=== PATIENT | male | born 1970 | race Caucasian/White ===

== ENCOUNTER → 2023-04-13 | Outpatient (CLI) | payer OTHER, SELFPAY | END | disposition home or self-care (01) | PROVIDERS: Referring Provider Otolaryngology Otolaryngology/Facial Plastic Surgery; Visit Provider Otolaryngology Otolaryngology/Facial Plastic Surgery | DX: J03.90 Acute tonsillitis, unspecified (principal) | CPT/HCPCS: 87070 ==

== ENCOUNTER → 2023-05-11 | Outpatient (CLI) | payer OTHER, SELFPAY ==
--- NOTE | 2023-05-11 06:54 | CT_ITS ---
STUDY: CT SOFT TISSUE NECK WITH CONTRAST REASON FOR EXAM: Male, 52 years old. Malignant neoplasm of tonsil, unspecified RADIATION DOSAGE (If Supplied By Facility): CTDIvol = ( 17.55 ) mGy, DLP = ( 523.42 ) mGycm TECHNIQUE: The patient was scanned in a multi-detector CT scanner. High resolution transaxial imaging was performed following intravenous administration of IV 100mL Isovue-370. Sagittal and coronal images were reconstructed. Individualized dose optimization techniques were used for this CT. COMPARISON: None. FINDINGS: Normal bilateral parotid glands. Normal bilateral supervisor soakers spaces. Normal bilateral parapharyngeal spaces. Normal bilateral carotid spaces. Normal bilateral sublingual and submandibular glands and spaces. Normal visualized nasopharynx. Normal retropharyngeal space. Normal perivertebral space. There is asymmetric enlargement of the bilateral palatine tonsils, left more so compared to the right, cannot exclude a nodule or lesion. There is borderline-mild enlargement of the soft palate. The visualized tongue, tongue base and oropharynx are normal. Mild scattered lymph nodes with slight enlargement involving the carotid sheath and anterior cervical chain, nonspecific. Normal epiglottis, bilateral vallecula and hypopharynx. The pre-epiglottic and paraglottic adipose spaces are normal. Normal visualized bilateral piriform sinuses, aryepiglottic folds, vocal cords, and arytenoid-cricoid articulations. Normal subglottic trachea. Normal bilateral lobes of the thyroid gland. Normal visualized pulmonary apices. Areas of focal mucosal thickening versus mucous retention cyst versus polyp involving the bilateral maxillary sinuses. Remainder of the paranasal sinuses and mastoids are clear. There is multilevel degenerative changes of the cervical spine. Minimal atherosclerotic disease involving the bilateral carotid bulb region otherwise normal bilateral carotid and vertebral arteries. CT/Soft Tissue Neck WITH Contrast IMPRESSION: Mild fullness involving the tip of the soft palate, fibula is mild asymmetric enlargement of bilateral pontine tonsils, left more than right, cannot exclude a subtle mass at this level. Clinical correlation recommended. Mild lymph node prominence bilaterally along the upper cervical chain and carotid sheath of indeterminate clinical significance. No other masses or lymphadenopathy seen. Electronically Signed: Nedra Ledbetter MD at 18:26 EDT ,
== END | disposition home or self-care (01) ==
LOC: CT 06:52
PROVIDERS: Referring Provider Otolaryngology Otolaryngology/Facial Plastic Surgery; Visit Provider Otolaryngology Otolaryngology/Facial Plastic Surgery
DX: C09.9 Malignant neoplasm of tonsil, unspecified (principal)
CPT/HCPCS: 70491; Q9967

== ENCOUNTER → 2023-05-23 | Outpatient (CLI) | payer OTHER, SELFPAY ==
[2023-05-23 09:14] LABS: Hematocrit 46.1 % (40-54); Hemoglobin 15.1 g/dL (13.0-16.5); Mean Corp Hgb Conc 32.8 g/dL (32-36); Mean Corpuscular Hgb 33.6 pg (27.0-32.0); Mean Corpuscular Volume 102.4 fL (80-94); Mean Platelet Vol. 10.9 fl (6.2-12.0); Platelet Count 211 K/mm3 (150-450); RBC Distribution Width CV 12.3 % (11.6-14.6); RBC Distribution Width SD 46.5 fl (35.1-43.9)
[2023-05-23 09:42] LABS: Anion Gap 9 (5-15); BUN 11 mg/dL (7-18); BUN/Creat Ratio 14.8 RATIO (10-20); Calcium,Total 9.6 mg/dL (8.5-10.1); Chloride 103 mmol/L (98-107); Creatinine, Serum 0.74 mg/dL (0.70-1.30); EST Glomerular Filtration Rate 117 mL/min (>60); Est Glom Filt Rate - Afr Amer 141 mL/min (>60); Glucose 87 mg/dL (74-106); Potassium 3.8 mmol/L (3.5-5.1); Sodium Level 138 mmol/L (136-145)
== END | disposition home or self-care (01) ==
PROVIDERS: Referring Provider Otolaryngology; Visit Provider Otolaryngology
DX: Z01.818 Encounter for other preprocedural examination (principal)
CPT/HCPCS: 36415; 80048; 85027; 93005

== ENCOUNTER → 2023-06-17 | Outpatient (CLI) | payer OTHER, SELFPAY ==
[2023-06-17 08:26] LABS: Hematocrit 43.3 % (40-54); Mean Corp Hgb Conc 32.3 g/dL (32-36); Mean Corpuscular Hgb 33.3 pg (27.0-32.0); Mean Corpuscular Volume 103.1 fL (80-94); Mean Platelet Vol. 11.7 fl (6.2-12.0); Platelet Count 328 K/mm3 (150-450); RBC Distribution Width CV 11.9 % (11.6-14.6); RBC Distribution Width SD 45.1 fl (35.1-43.9); White Blood Count 7.3 K/mm3 (4.4-11.0)
[2023-06-17 09:19] LABS: Anion Gap 5 (5-15); BUN 10 mg/dL (7-18); BUN/Creat Ratio 9.6 RATIO (10-20); Calcium,Total 9.2 mg/dL (8.5-10.1); Chloride 111 mmol/L (98-107); Creatinine, Serum 1.04 mg/dL (0.70-1.30); EST Glomerular Filtration Rate 79 mL/min (>60); Est Glom Filt Rate - Afr Amer 96 mL/min (>60); Glucose 109 mg/dL (74-106); Sodium Level 143 mmol/L (136-145)
== END | disposition home or self-care (01) ==
LOC: LAB 07:36
PROVIDERS: Referring Provider Otolaryngology; Visit Provider Otolaryngology
DX: Z01.818 Encounter for other preprocedural examination (principal)
CPT/HCPCS: 36415; 80048; 85027

== ENCOUNTER → 2023-06-28 | Outpatient (CLI) | payer OTHER, SELFPAY ==
--- NOTE | 2023-06-28 | TONS_PTH ---
PATIENT: JUAN MANUEL FERNÁNDEZ [id number] AGE/SX: 52/M ROOM: RE06/28/[address]: Dr. Williams Borges MD : 1970 BED: DIS: 06/28/2023 SPEC #: [id number] RECD: 06/28/23 15:05 STATUS: SIMBA MCGUIRE #: [id number] AIDEN: 06/28/23 00:[address]: Williams Borges DEPT: SURGICAL PATHOLOGY RECD BY: Sho De Anda ENTERED: 06/29/23 07:38 SP TYPE: TONSILS OTHR DR: No Primary Care Phys [facility] Tissues: A - Tonsil, NOS B - Tonsil, NOS Procedures: Surgery Specimen Level IV HEADER OPERATION: Tonsillectomy, panendoscopy PRE-OP DIAGNOSIS: Chronic disease of tonsils TISSUE SUBMITTED: A - Right tonsil, B - Left tonsil MICROSCOPIC DIAGNOSIS A. Right tonsil, tonsillectomy: Benign lymphoid tissue. Organisms consistent with actinomyces. B. 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 See comment. AM:gerard 06/30/2023 COMMENT B. The invasive carcinoma measures 15.5 x 1.2 x 9.0 mm and is present at less than 1.0 mm from the tonsillar bed (deep) margin of resection. The carcinoma focally invades superficial skeletal muscle fibers. There is no evidence of angiolymphatic or perineural invasion. Immunohistochemistry ([id number]) supports the above diagnosis. MICROSCOPIC DESCRIPTION Slides are reviewed. GROSS DESCRIPTION A - Received in formalin labeled with the patient's name and designated right tonsil. The specimen consists of a tonsil that weighs 2.0 gm and measures 2.6 x 1.6 x 1. cm. The external surface is pink-king, smooth, glistening and somewhat lobulated. Focally it is hemorrhagic, granular and bears cautery artifact. Serial cross sections through the tonsil reveal normal tonsillar architecture. The specimen is serially sectioned and totally submitted in one cassette. B - Received in formalin labeled with the patient's name and designated left tonsil. The specimen consists of a tonsil that weighs 4.5 gm and measures 3.5 x 2.5 x 1.5 cm. The external surface is pink-king, smooth, glistening and somewhat lobulated. Focally it is hemorrhagic, granular and bears cautery artifact. Serial cross sections through the tonsil reveal normal tonsillar architecture. The specimen is inked, serially sectioned and totally submitted in three cassettes. / AM:gerard 06/29/2023 TC:0 CPT: 78192 x2
--- NOTE | 2023-06-28 | IMM_PTH ---
PATIENT: JUAN MANUEL FERNÁNDEZ LOC: [facility] U#:[id number] AGE/SX: 52/M ROOM: RE06/28/[address]: Dr. Williams Borges MD : 1970 BED: DIS: 06/28/2023 SPEC #: [id number] RECD: 06/30/23 08:02 STATUS: SIMBA REQ #: [id number] AIDEN: 06/28/23 00:[address]: Williams Borges DEPT: IMMUNOHISTOCHEMISTRY RECD BY: Polina Bragg ENTERED: 06/30/23 08:05 SP TYPE: IMMUNO OTHR DR: Lucero Primary Care Phys Tissues: B - Tonsil, NOS Procedures: p16 (initial) CD31 (add) CK5-6 (add) DESMIN (add) KI-67 (add) FACTOR VIII (add) Pankeratin (add) P40 (add) PHYSICIAN & INSTITUTION [place] [id number] SPECIMEN INFORMATION: Tissue Source: B - Left tonsil Clinical Info: Chronic disease of tonsils Specimen Number: [id number] B2-4 CPT code: 57445, 34123 x14 METHODOLOGY: Deparaffinized sections of prefer/formalin-fixed tissue or PAP/DQ stained slides are incubated with monoclonal/polyclonal antibodies/oligonucleotide probes. Localization is made via biotin free immunoperoxidase method. Appropriate controls are performed and reacted as expected. Results on target cell population are indicated in the following table: RESULTS: ANTIBODY / CLONE RESULT Block B2 P40 (BC28) positive P16 (E6H4) positive block like CK5-6 (D5 & 1684) positive AE1-3 (AE1/AE3/PCK26) positive Ki-67 (30-9) positive Block B3 P40 (BC28) positive CK5-6 (D5 & 1684) positive Desmin (CE-R-11) positive CD31 (MIRIAM/70A) negative Factor VIII (R Ag) negative Block B4 P40 (BC28) positive CK5-6 (D5 & 1684) positive Desmin (CE-R-11) positive CD31 (MIRIAM/70A) negative Factor VIII (R Ag) negative These tests were developed and their performance characteristics determined by [facility]. They may not have been cleared or approved by the U.S. Food and Drug Administration. The FDA has determined that such clearance or approval is not necessary. The above immunohistochemical/dualISH markers are ordered and reviewed by the Pathologist. INTERPRETATION: B. Left tonsil, tonsillectomy: Invasive squamous cell carcinoma
--- NOTE | 2023-06-28 | TONS_PTH ---
PATIENT: JUAN MANUEL FERNÁNDEZ [id number] AGE/SX: 52/M ROOM: RE06/28/[address]: Dr. Williams Borges MD : 1970 BED: DIS: 06/28/2023 SPEC #: [id number] RECD: 06/28/23 15:05 STATUS: SIMBA MCGUIRE #: [id number] AIDEN: 06/28/23 00:[address]: Williams Borges DEPT: SURGICAL PATHOLOGY RECD BY: Sho De Anda ENTERED: 06/29/23 07:38 SP TYPE: TONSILS OTHR DR: No Primary Care Phys [facility] Tissues: A - Tonsil, NOS B - Tonsil, NOS Procedures: Surgery Specimen Level IV HEADER OPERATION: Tonsillectomy, panendoscopy PRE-OP DIAGNOSIS: Chronic disease of tonsils TISSUE SUBMITTED: A - Right tonsil, B - Left tonsil MICROSCOPIC DIAGNOSIS A. Right tonsil, tonsillectomy: Benign lymphoid tissue. Organisms consistent with actinomyces. B. 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 See comment. AM:gerard 06/30/2023 AM:gerard 07/27/2023 COMMENT B. The invasive carcinoma measures 15.5 x 1.2 x 9.0 mm and is present at less than 1.0 mm from the tonsillar bed (deep) margin of resection. The carcinoma focally invades superficial skeletal muscle fibers. There is no evidence of angiolymphatic or perineural invasion. Immunohistochemistry ([id number]) supports the above diagnosis and reveals an invasive squamous cell carcinoma. Case was discussed with Dr. Escobar on 07/27/2023. MICROSCOPIC DESCRIPTION Slides are reviewed. GROSS DESCRIPTION A - Received in formalin labeled with the patient's name and designated right tonsil. The specimen consists of a tonsil that weighs 2.0 gm and measures 2.6 x 1.6 x 1. cm. The external surface is pink-king, smooth, glistening and somewhat lobulated. Focally it is hemorrhagic, granular and bears cautery artifact. Serial cross sections through the tonsil reveal normal tonsillar architecture. The specimen is serially sectioned and totally submitted in one cassette. B - Received in formalin labeled with the patient's name and designated left tonsil. The specimen consists of a tonsil that weighs 4.5 gm and measures 3.5 x 2.5 x 1.5 cm. The external surface is pink-king, smooth, glistening and somewhat lobulated. Focally it is hemorrhagic, granular and bears cautery artifact. Serial cross sections through the tonsil reveal normal tonsillar architecture. The specimen is inked, serially sectioned and totally submitted in three cassettes. / AM:gerard 06/29/2023 TC:0 CPT: 49008 x2
== END | disposition home or self-care (01) ==
LOC: LABSPEC 15:13
PROVIDERS: Visit Provider Otolaryngology
DX: C09.9 Malignant neoplasm of tonsil, unspecified (principal)
CPT/HCPCS: 88304; 88305; 88341; 88342

== ENCOUNTER 2023-07-04 15:21 | Day surgery (SDC) | payer OTHER, SELFPAY ==
[2023-07-04] VITALS (7 sets, daily range): BP systolic 137–153; BP diastolic 76–105; PULSE 62–88; RESP 14–16; TEMP 36.1–37.1; O2SAT 92–98; BMI 23.5
--- NOTE | 2023-07-04 15:27 | EX.ED.DYSGE1 ---
HPI History of Present Illness Chief Complaint: Sore Throat Detail of Chief Complaint: Post tonsillar bleed Informant: patient, spouse/S.O. and other (Dr. Leo Borges called prior to patient's arrival. He requested IV.) Onset/Context/Timing Onset: Today Context: Sudden Onset Timing: Continuous and Waxes and wanes Quality: Post tonsillar bleed Location: Left Current Severity: Mild Maximum Severity: Moderate Worsened by: Nothing Relieved by: Nothing Associated Symptoms Associated Symptoms: None Narrative Narrative: Patient is a 52-year-old male status post tonsillectomy last week. He contacted Dr. Borges. He called prior to patient's arrival. Patient has not had any to eat today. He had water prior to arrival to clear his throat. He is not taking any NSAIDs or antiplatelet medicine. He has no other complaints. Prior similar symptoms: No Recent Illness/Hospitalization: Yes [facility] Medical History (Updated 07/04/23 @ 15:41 by Jo Mai) Tonsillar bleed Medical History no medical history no medical history Social History Smoking Status: Unknown if ever smoked [facility] ED Constitutional Constitutional ED: Denies chills or fever(s) Eyes Eyes: Denies blurry vision, change in vision or diplopia ENT ENT ED: Reports sore throat; Denies ear pain or rhinorrhea Cardiovascular Cardiovascular: Denies chest pain or palpitations Respiratory/Chest Respiratory/Chest: Denies cough, dyspnea or dyspnea on exertion Gastrointestinal Gastrointestinal: Denies nausea or vomiting Hematologic/Lymphatic Hematologic/Lymphatic: Reports systems reviewed and no addt'l complaints, except as documented EXAM Physical Exam Const Vital Signs: 07/04/23 15:22 Temperature 96.9 F L Temperature Source Temporal Pulse Rate 87 Respiratory Rate 16 Blood Pressure 153/89 H Blood Pressure Mean 110 Pulse Ox 97 Oxygen Delivery Method Room Air Positive well nourished and well developed General Appearance ED: well developed and NAD; Negative for cyanotic, diaphoretic or pallor HEENT Reports moist mucous membranes HEENT Narrative: Blood noted posterior pharynx. There is a moderate-sized clot noted in the left tonsillar fossa. Uvula is midline. There is no dysphonia. Eyes PERRL and EOMs intact bilaterally General Eye ED: Negative for pale conjunctiva or scleral icterus Neck no lymphadenopathy, supple and no JVD Neck Narrative: Trachea is midline. Resp normal respiratory effort and clear to auscultation bilaterally Cardio regular rate, regular rhythm, S1 normal heart sound, S2 normal heart sound and no murmurs Extremity normal to inspection Neuro oriented x3 and CN's II-XII intact bilaterally Sensorium / Orientation: alert Psych mental status grossly normal Skin no rashes or lesions noted, no wounds and skin turgor normal General Skin Exam: Negative for jaundice or pallor MDM MDM MDM Narrative Medical decision making narrative: Patient has a post tonsillectomy bleed. He has mild active bleeding at this time. Patient made NPO. IV was established. ENT was made aware that patient has arrived. Plan is OR. Blood work was not obtained since he just started to bleed and would not add anything to patient's care. History & Record Review Additional record(s) reviewed:: Prior outpatient record (Tonsillectomy performed last week, Tuesday) Treatment and Re-Evaluation :: Dr. Dominguez did see patient in the emergency room. He was taken to the OR. Discharge Plan Dx/Rx/DC Orders Clinical Impression: Post-tonsillectomy hemorrhage Disposition Disposition: Acute Care Hospital [facility] Discharge Date/Time: 07/04/23 15:42
--- NOTE | 2023-07-04 15:39 | ED.RN ---
pt to OR via wheelchair. Dr. Mullen and Dr. Orta saw in ED. consent signed. IV in.
--- NOTE | 2023-07-04 16:44 | DCINST_ITS ---
Discharge Instructions Diet Discharge Diet: Soft diet Activity Discharge Activity: Return to Normal Activity Dressing / Incision Call your doctor if your incision/area has: Sudden Increased Bleeding Follow Up Care Please Follow Up With: Williams Borges MD When: 1 week Test Results: Test results from this visit will be discussed in further detail at your follow- up appointment, if applicable. Discharge Plan Admission Attending Provider: Williams Borges Primary Care Provider: Care Physician,Lucero Primary Discharge Orders/Prescriptions Referrals / Follow Up: Care Physician,No Primary [Primary Care Provider] - Disposition Disposition (needs filled in before D/C Order can be placed): Home, Self Care
--- NOTE | 2023-07-04 16:45 | PCM.OPRPT ---
Problems Associated Problem List Diagnoses (1) Post-tonsillectomy hemorrhage: Report of Operation Date of Procedure: 07/04/23 Pre-Operative Diagnosis: post tonsillectomy hemorrhage Post-Operative Diagnosis: post tonsillectomy hemorrhage Surgery/Procedure Performed:: control post tonsillectomy hemorrhage Surgeon: Williams Borges Type of Anesthesia: General Description of Procedure: on the day of the procedure, after appropriate informed consent was obtained, the patient was brought to the operating room and placed in supine position in the operating table. he was placed under general endotracheal anesthesia by the anesthesiologist. the tube was secured, the eyes were taped. the table was rotated 90 degrees toward the surgeon. a lynne naomie mouthgag was inserted into the oral cavity and suspended from the nicholas. a large clot was removed from the left tonsillar fossa. a mid-fossa anterior arterial bleed was cauterized. the remainder of the fossa was cauterized. the right fossa was probed and cauterized. numerous valsalva maneuvers were held and hemostasis was observed. he was extubated and transferred to the PACU in stable condition.
[2023-07-04] MEDS: Oxycodone/Apap 5/325 Tablet PO (18:22)
== END 2023-07-04 18:38 | disposition home or self-care (01) ==
LOC: ED 15:32 → SDC 15:41 → AC 15:42
PROVIDERS: Emergency Provider Emergency Medicine; Visit Provider Otolaryngology
PROC: (CPT 42960; principal; 2023-07-04 16:00)
DX: J95.830 Postprocedural hemorrhage of a respiratory system organ or structure following a respiratory system procedure (principal)
CPT/HCPCS: 42960; 00170; 99284; J7120; A4216; J2405

== ENCOUNTER → 2023-08-16 | Outpatient (CLI) | payer OTHER, SELFPAY ==
--- NOTE | 2023-08-16 09:00 | PET_ITS ---
EXAMINATION: FDG PET/CT ? INDICATIONS: 52-year-old male with a history of head/neck carcinoma, presenting for restaging examination. ? COMPARISON EXAMINATION: None available ? INDEX LESION SIZE SUV INTERPRETATION Left sacral ala ? 2.8 max Quantitative criteria for viable neoplasm are fulfilled, histopathologic investigation recommended, correlation with Magnetic Resonance Imaging recommended, as defined below. ? TECHNIQUE: Following the intravenous administration of 13.06 mCi of F-18 deoxyglucose via the left antecubital fossa, multiplanar image acquisitions of the head, neck, chest, abdomen and pelvis to the level of the midthigh, obtained at one-hour post radiopharmaceutical administration contemporaneously interpreted with the current CT of the chest, abdomen and pelvis dated 08/16/2023 via coregistration reveal: SERUM GLUCOSE LEVEL:? 109 mg/dL? HEIGHT:?? 65 inches WEIGHT:?? 155 pounds ? FINDINGS: ? HEAD/NECK:? There is no evidence of abnormal increased glucose metabolism in the pharyngeal mucosal space, parapharyngeal space, oropharynx, bilateral-lateral and anterior neck, hypopharynx and distribution of the larynx. Asymmetric increased radiopharmaceutical concentration is manifest in the posterior cervical soft tissue compartment of the right neck most consistent with a component of muscle tension artifact. ? The visualized portion of the cerebral cortical-subcortical structures demonstrate symmetric and preserved glucose metabolism. ? CHEST:? There is no quantitative scintigraphic evidence of abnormal increased glucose metabolism within the context of the bilateral hemithorax pulmonary parenchyma, right and left hemithorax at the pleural interface, mediastinal structures, and left-right thoracic perihilum. ? CT of the chest demonstrates the following anatomic characteristics: Coronary artery calcification is observed.? Bilateral axillary soft tissue densities reveal no evidence of increased tracer uptake. Mediastinal soft tissue is ametabolic. There are no parenchymal densities-nodules defined in the right and left hemithorax with quantitatively significant increased FDG uptake. ? ABDOMEN/PELVIS:? Normal physiologic distribution of the radiopharmaceutical is identified in the hepatic (2.9) and splenic parenchyma, both renal units, urinary bladder, and visualized intestinal tract. Diffuse intestinal tract is identified in all four quadrants of the abdominal-pelvic mesentery. ? CT of the abdomen and pelvis is remarkable for the following: Pelvic arterial calcification is observed. Calcified phlebolith formation is noted in the bilateral lower hemipelvis. Right and left inguinal soft tissue densities are ametabolic. Calcification is visualized within the prostate gland. ? SKELETAL:? Asymmetric increased radiopharmaceutical concentration is defined within the left sacral ala generating a calculated standard uptake value of 2.8. ? PET/PET/CT Tumor Base -Thigh Init IMPRESSION: ? The increased radiopharmaceutical concentration defined in the left sacral ala fulfills quantitative criteria for viable neoplasm with single point technique. Correlation with Magnetic Resonance Imaging may be of benefit. Histopathologic analysis is recommended. Electronic Signature Oneal Pineda D.O. Accurate Quantification of SUVs for this report are calculated using the exclusive [employer]. (U.S. Patent No. [phone] [phone] B2 [phone] [place] patent [phone]). Standardization and correction of the FDG SUV metric via [employer] technology allow for vendor non-specific objective quantitative examination comparison and optimization of the sensitivity and specificity of the FDG PET-CT examination. . [email or web address] Electronically Signed: Oneal Pineda DO at 12:13 EST ,
--- OUTSIDE RECORDS SUMMARY | 2023-08-16 09:03 | XMS RPT_ITS | CCD ---
Author Name Unknown Address [address] [place] [address] Organization [facility] Care Team Providers Care Word Processor Operator Name Role Phone RADHA BALDERRAMA Attending Unavailable POGORELEC, KIM D Primary Care Unavailable RADHA BALDERRAMA Attending Unavailable POGORELEC, KIM D Primary Care Unavailable Unavailable Primary Care Provider UnavailJUNIOR Hobbs Attending Unavailable POGORELEC, KIM D Primary Care Unavailable Results Test Name Value Interpretation Reference Range Facil ity Encounters Encounter Date Encounter Type Care Provider Facility Start: 07-27-2023 End: 07-27-2023 ambulatory JUNIOR ESCOBAR Facility:[facility] Start: 05-10-2020 End: 05-10-2020 Patient encounter procedure Izzy Hermosillo Work Phone: [facility] Start: 05-10-2020 Results Only Izzyvicki Hermosillo Work Phone: Gastroenterology Start: 09-05-2018 End: 09-06-2018 Patient encounter procedure RADHA CONCHIS Facility:A Start: 06-09-2018 Patient encounter procedure RADHABENIGNO ORNELASCONCHIS Facility:A Procedures Date Procedure Procedure Detail Performing Clinician Start: 05-10-2020 PT ED PATIENT INFORMATION Izzy Hermosillo Work Phone: Plan of Treatment Date Care Activity Detail Author PT ED PATIENT INFORMATION PT ED PATIENT INFORMATION Other 05/10/2020 [facility] Payers Date Payer Category Payer Unknown [id number] 2020 Unknown [employer]YUSH RACHEL PPO [id number] 2020-Present PPO [id number] 2018 Unknown [id number] 2018 Unknown [id number] 1968 Unknown [id number] 1968 Unknown [id number] Social History Date Type Detail Facility Tobacco smoking status NHIS Unknown if ev er smoked [facility] Sex Assigned At Not on file [facility] Exposure to SARS-CoV-2 (event) Not sure [facility] Progress note 07-27-2023 Note Date & Type Note Facility 07-27-2023 Note HNO ID: [id number] Author: Junior Escobar MD Service: ? Author Type: Physician Type: Progress Notes Filed: 07/27/2023 4:22 PM Note Text: HISTORY OF PRESENT ILLNESS: Corey Carrillo is a 52 year old male presented to ENT with sore throat some bleeding from back of throat. CT showed tonsillar fullness, L>R Now post tonsillectomy, left tonsil with SCC (amended pathology report originally said adenocarcinoma, corrected after I reviewed with pathology). CT neck showed nonspecific mildly enlarged LN. Met with patient and his , detailed discussion of findings, possible need for RT given close margin, NCCN guidelines. CLINICAL IMPRESSION: Left tonsil SCC, p16 positive RECOMMENDATION/PLAN: 1. PET, we can follow up by phone after 2. He plans to continue care with [facility], I gave some recommendations re med onc and rad onc. Written and verbal health teaching given to patient, patient verbalizes understanding and agrees with treatment plan. PAST MEDICAL HISTORY Diagnosis Date Adenomatous colon polyp Dyspepsia GERD (gastroesophageal reflux disease) Hemorrhoid Hiatal hernia PAST SURGICAL HISTORY Procedure Laterality Date COLONOSCOPY GEN ANES 08/19/2020 Tubular Adenoma in Ascending Colon, Mucosal Lymphoid Aggregate in Transverse Colon, Internal Hemorrhoids EGD 06/16/2020 hiatal hernia, Erythematous mucosa,fundic gland polyps HERNIA REPAIR HX Right inguinal TONSILLECTOMY HX 06/28/2023 FAMILY HISTORY Problem Relation Age of Onset Leukemia Father passed at 68 Psoriasis Brother Colon Cancer No Family History Social History Tobacco Use Smoking status: Former Packs/day: 0.50 Years: 5.00 Additional pack years: 0.00 Total pack years: 2.50 Types: Cigarettes Quit date: 2002 Years since quittin.0 Smokeless tobacco: Current Types: Chew Vaping Use Vaping Use: Never used Substance Use Topics Alcohol use: Not Currently Drug use: Never ALLERGIES: ALLERGIES No Known Allergies CURRENT OUTPATIENT MEDICATIONS: Omeprazole Magnesium (PRILOSEC OTC) 20 mg tablet Take 20 mg by mouth every other day. polyethylene glycol 3350 (MIRALAX, GLYCOLAX) 17 gram/dose powder Use as directed for Miralax / Gatorade Bowel Prep Kit Gatorade Sports Drink Use as directed for Miralax / Gatorade Bowel Prep Kit Bisacodyl (DULCOLAX) 5 mg tab Use as directed for Miralax / Gatorade Bowel Prep Kit REVIEW OF SYSTEMS: GENERAL: No fever, night sweats, weight loss or malaise. All other reviewed and negative other than HPI. PHYSICAL EXAMINATION: VITAL SIGNS: BP 114/74 Pulse 71 Temp (Src) 98 (Temporal) Ht 5' 5.5 (1.66m) Wt 155 lb (70.3kg) SpO2 99% BMI 25.39 kg/(m2). GENERAL APPEARANCE: Well appearing, in no acute distress, alert and oriented x3, well-hydrated, well nourished. I spent a total of 60 minutes on the date of the service which included preparing to see the patient, [id number] patient care, completing clinical documentation, obtaining and/or reviewing separately obtained history, counseling and educating the patient/family/caregiver, ordering medications, tests, or procedures, communicating with other HCPs (not separately reported), independently interpreting results (not separately reported), and communicating results to the patient/family/caregiver. Electronically Signed: Junior Escobar MD July 27, 2023 4:18 PM [facility] Summary Purpose Family History No Family History Records FoundNo Family History Records Found Advance Directives No Advanced Directives Records FoundNo Advanced Directives Records Found Additional Source Comments (unrecognized sect ion and content) No Status Records FoundNo Status Records Found INFORMATION SOURCE (unrecogn ized section and content) DATE CREATED AUTHOR AUTHOR'S ALLYSSA ATION 08/15/2023 [facility] Source Comments (unrecognize d section and content) In the event this informatio n is protected by the Federal Confidentiality of Alcohol and Drug Abuse Patient Records regulations: The Federal rules restrict any use of the information to criminally investigate or prosecute any alcohol or drug abuse patient.[facility] FOR RECORDS PERTAINING TO PATIENTS WHO ARE OR HAVE BEEN ENROLLED IN A CHEMICAL DEPENDENCY/SUBSTANCEABUSE PROGRAM, SOME INFORMATION MAY BE OMITTED. This clinical summary was aggregated from multiple sources. Caution should be exercised in using it in the provision of clinical care. This summary normalizes information from multiple sources, and as a consequence, information in this document may materially change the coding, format and clinical context of patient data. In addition, data may be omitted in some cases. CLINICAL DECISIONS SHOULD BE BASED ON THE PRIMARY CLINICAL RECORDS. [facility]. provides no warranty or guarantee of the accuracy or completeness of information in this document.
== END | disposition home or self-care (01) ==
PROVIDERS: Referring Provider Specialist; Visit Provider Specialist
DX: C09.9 Malignant neoplasm of tonsil, unspecified (principal)
CPT/HCPCS: 78815; A9552

== ENCOUNTER → 2023-08-25 | Outpatient (CLI) | payer OTHER, SELFPAY ==
--- NOTE | 2023-08-25 11:56 | MRI_ITS ---
HISTORY: L5/sacral abnormality on PET -- R/O metastatic disease TECHNIQUE: Multiplanar and multisequence MR images of the lumbar spine were obtained before and after the intravenous administration of 15 mL Clariscan. 215 images. COMPARISON: PET-CT 08/16/2023. FINDINGS: VERTEBRAE: Vertebral body heights maintained. Mild degenerative endplate changes of the lumbar spine without suspicious signal abnormality in the vertebral bodies. Bone marrow edema of the left L5-S1 facet with mild surrounding soft tissue edema, mild enhancement, and small posterior synovial cysts measuring up to 6 mm. ALIGNMENT: No anterior or posterior subluxation. SPINAL CANAL: Normal morphology and position of the conus medullaris at the T12-L1 level. No epidural collection or intradural extramedullary mass. INTERVERTEBRAL DISCS: T12-L1: No significant posterior disc protrusion, central canal stenosis, or foraminal narrowing based on the sagittal images. L1-2: Mild posterior disc bulge osteophyte complex without significant central canal stenosis or foraminal narrowing. L2-3: No significant posterior disc protrusion, central canal stenosis, or foraminal narrowing. L3-4: Mild disc bulge with facet arthropathy resulting in mild-moderate bilateral foraminal narrowing. No significant central canal stenosis. L4-5: Mild disc bulge with facet arthropathy resulting in moderate bilateral foraminal narrowing with bilateral L4 nerve root abutment. No significant central canal stenosis. L5-S1: Mild disc bulge with facet arthropathy resulting in mild bilateral foraminal narrowing. No significant central canal stenosis. SOFT TISSUES: No paraspinal fluid collection. MRI/Spine Lumbar W/WO Contrast IMPRESSION: Left L5-S1 facet arthritis with mild edema and small posterior synovial cysts. No evidence for metastatic disease in the lumbar spine. Mild multilevel degenerative disc disease resulting in moderate foraminal narrowing as above. No significant spinal canal stenosis. Electronically Signed: Roseann Blair MD at 13:54 EST ,
== END | disposition home or self-care (01) ==
LOC: MRI 11:45
PROVIDERS: Referring Provider Student in an Organized Health Care Education/Training Program; Visit Provider Student in an Organized Health Care Education/Training Program
DX: R94.8 Abnormal results of function studies of other organs and systems (principal); C09.9 Malignant neoplasm of tonsil, unspecified
CPT/HCPCS: 72158; A9575